=== PATIENT | male | born 1975 | race Caucasian/White ===

== ENCOUNTER 2016-11-05 00:25 | Inpatient (IN) | payer MEDICAID, OTHER ==
[~2016-11-05] VITALS: Ht 170.2 cm; Wt 79.4 kg
[2016-11-05 00:57] LABS: BASOPHILS # (AUTO) 0.04 K/uL (0.00-0.20); BASOPHILS % (AUTO) 0.4 % (0.0-2.0); EOSINOPHILS # (AUTO) 0.25 K/uL (0.00-0.70); EOSINOPHILS % (AUTO) 2.74 % (1.0-6.0); HEMATOCRIT 43.1 % (41-53); HEMOGLOBIN 14.6 g/dL (13.5-17.5); LYMPHOCYTES # (AUTO) 1.5 K/uL (1.0-4.8); LYMPHOCYTES % (AUTO) 16.1 % (22.0-44.0); MEAN CORPUSCULAR HEMOGLOBIN 30.8 pg (26.0-34.0); MEAN CORPUSCULAR HGB CONC 33.9 G/dL (31.0-37.0); MEAN CORPUSCULAR VOLUME 91 fL (80-100); MONOCYTES # (AUTO) 0.6 K/uL (0.1-1.0); MONOCYTES % (AUTO) 6.4 % (2.0-9.0); NEUTROPHILS # (AUTO) 6.7 K/uL (1.8-7.7); NEUTROPHILS % (AUTO) 74.4 % (40.0-70.0); PLATELET COUNT (AUTO) 271 K/uL (150-450); RED BLOOD CELL COUNT(AUTO) 4.74 MIL/uL (4.50-5.90); RED CELL DISTRIBUTION WIDTH 13.6 % (11.5-14.5)
[2016-11-05 01:07] LABS: ANION GAP 5 mmol/L (8-16); CALCIUM, TOTAL 8.9 mg/dL (8.8-10.5); CARBON DIOXIDE 31 mmol/L (22-29); CHLORIDE 103 mmol/L (98-107); CREATININE 1.12 mg/dL (0.60-1.30); GLOMERULAR FILTR. RATE CALC > 60 mL/min (>60); POTASSIUM 3.9 mmol/L (3.5-5.1); SODIUM SERUM 139 mmol/L (136-145); UREA NITROGEN, BLOOD 20 mg/dL (7-18)
[2016-11-05 01:12] LABS: ALANINE AMINOTRANSFERASE 37 U/L (12-78); ALBUMIN 4.2 g/dL (3.4-5.0); ASPARTATE AMINOTRANSFERASE 34 U/L (15-37); BILIRUBIN,TOTAL 0.2 mg/dL (0.1-1.0); TOTAL PROTEIN, SERUM 7.8 g/dL (6.4-8.2)
[2016-11-05] MEDS ORDERED: ZOLPIDEM TARTRATE 10 MG TABLET PO PRN (01:30)
[2016-11-05] MEDS ORDERED: LORazepam 2 MG TABLET PO PRN (01:30)
[2016-11-05] MEDS ORDERED: HALOPERIDOL 5 MG TABLET PO PRN (01:30)
[2016-11-05 02:21] LABS: APPEARANCE,URINE CLEAR (CLEAR); GLUCOSE, URINE (UA) NEGATIVE (NEGATIVE); KETONES,URINE NEGATIVE (NEGATIVE); LEUKOCYTE ESTERASE ,URINE NEGATIVE (NEGATIVE); OCCULT BLOOD,URINE TRACE (NEGATIVE); PROTEIN,URINE POS 1+ (NEGATIVE)
[2016-11-05 02:22] LABS: ADD UA MICROSCOPIC YES
[2016-11-05 02:25] LABS: CALCIUM OXALATE CRYSTALS,UR Few /LPF (None Seen); HYALINE CASTS, URINE 0-2 /LPF (None Seen); SQUAMOUS EPITHELIAL CELL,UR Rare /LPF (None Seen); WBC,URINE 0-2 /HPF (0-5)
[2016-11-05 03:31] VITALS: BP 120/78
[2016-11-05 10:19] VITALS: BP 131/89
[2016-11-05] MEDS ORDERED: IBUPROFEN 600 MG TABLET PO PRN (13:30)
[2016-11-05] MEDS ORDERED: LOPERAMIDE HCL 2 MG CAPSULE PO PRN (13:30)
[2016-11-05] MEDS ORDERED: MAG HYDROX/AL HYDROX/SIMETH ES 30 ML SUSPENSION UDCUP PO PRN (13:30)
[2016-11-05] MEDS ORDERED: MAGNESIUM HYDROXIDE SUSPENSION 30 ML UDCUP PO PRN (13:30)
[2016-11-05] MEDS ORDERED: ONDANSETRON HCL 4 MG TABLET PO PRN (13:30)
[2016-11-05] MEDS ORDERED: BACITRACIN 28.4 GM OINTMENT TP PRN (13:30)
[2016-11-05] MEDS ORDERED: ALBUTEROL SULFATE HFA 90 MCG/PUFF 8 GM INHALER IH PRN (13:30)
[2016-11-05] MEDS ORDERED: PETROLATUM,WHITE 71 GM JELLY TP PRN (13:30)
[2016-11-05] MEDS ORDERED: CloNIDine HCL 0.1 MG TABLET PO PRN (13:30)
[2016-11-05] MEDS ORDERED: ACETAMINOPHEN 325 MG TABLET PO PRN (13:30)
[2016-11-05] MEDS ORDERED: BENZOCAINE/MENTHOL LOZENGE [8 LOZENGES/PACKET] MM PRN (13:45)
[2016-11-05 16:00] VITALS: BP 141/79
[2016-11-05] MEDS: RisperiDONE 1 MG TABLET PO SCH (21:09)
[2016-11-06] MEDS: RisperiDONE 1 MG TABLET PO SCH ×2 (08:14→21:35)
[2016-11-06 08:56] VITALS: BP 158/80
[2016-11-06 16:11] VITALS: BP 131/70
[2016-11-07 08:09] VITALS: BP 134/98
[2016-11-07] MEDS: RisperiDONE 1 MG TABLET PO SCH ×2 (08:17→21:21)
[2016-11-07 16:00] VITALS: BP 131/87
[2016-11-08] MEDS: RisperiDONE 1 MG TABLET PO SCH ×2 (09:40→20:27)
[2016-11-08 09:44] VITALS: BP 119/85
[2016-11-08 16:21] VITALS: BP 105/64
[2016-11-09 08:00] VITALS: BP 141/96
[2016-11-09] MEDS: RisperiDONE 1 MG TABLET PO SCH ×2 (09:06→20:18)
[2016-11-09 16:43] VITALS: BP 138/86
[2016-11-10] MEDS: RisperiDONE 1 MG TABLET PO SCH (08:35)
[2016-11-10 08:39] VITALS: BP 134/70
[2016-11-10] MEDS ORDERED: RISP1 PO (11:37)
== END 2016-11-10 14:38 | disposition home or self-care (01) | DRG 751 ==
LOC: EMS 00:27 → 3EC 02:49 → 3EI 11-07 18:00
DX: F29 Unspecified psychosis not due to a substance or known physiological condition (principal); R45.851 Suicidal ideations; F32.9 Major depressive disorder, single episode, unspecified; F17.210 Nicotine dependence, cigarettes, uncomplicated; F12.90 Cannabis use, unspecified, uncomplicated; F14.90 Cocaine use, unspecified, uncomplicated; F11.90 Opioid use, unspecified, uncomplicated; Z59.0 Homelessness; Z71.6 Tobacco abuse counseling; Z71.51 Drug abuse counseling and surveillance of drug abuser
CPT/HCPCS: 99285; G0480; J3535; Q0162